=== PATIENT | male | born 1980 | race Caucasian/White ===

== ENCOUNTER 2019-01-16 22:49 | Inpatient (IN) | payer OTHER ==
[2019-01-16] MEDS ORDERED: ONDANSETRON 4 MG/2 ML VIAL IVPUSH ONE (23:01)
--- NOTE | 2019-01-16 23:14 | PDOC ---
History of Present Illness - History of Present Illness Initial Comments: 01/16/19 23:04 CHIEF COMPLAINT: abdominal pain HISTORY OF PRESENT ILLNESS: 38 yo M with no significant PMH presents to ED with LLQ pain since 5 pm. Patient reports vomiting 4-5 times and a little nausea now. Reports eating tacos yesterday and pork this morning . Similar episode about 20 days ago with diarrhea. Patient denies fever but reports chills. Last BM was today and was normal. No recent travel or sick contacts. PAST MEDICAL HISTORY: Denies past medical history FAMILY HISTORY: "my family has a problem with cancer." SOCIAL HISTORY:Denies tobacco, alcohol, illicit drug use. SURGICAL HISTORY: Denies ALLERGIES: No known drug allergies REVIEW OF SYSTEMS General/Constitutional: Denies fever or chills. Denies weakness, weight change. HEENT: Denies change in vision. Denies ear pain or discharge. Denies sore throat. Cardiovascular: Denies chest pain or shortness of breath. Respiratory: Denies cough, wheezing, or hemoptysis. Gastrointestinal: RLQ abdominal pain since 5 pm with 4-5 episodes vomiting. Denies rectal bleeding. Genitourinary: Denies dysuria, frequency, or change in urination. Musculoskeletal: Denies joint or muscle swelling or pain. Denies neck or back pain. Skin and breasts: Denies rash or easy bruising. Neurologic: Denies headache, vertigo, loss of consciousness, or loss of sensation. Psychiatric: Denies depression or anxiety. PHYSICAL EXAM General Appearance: Well-appearing, appropriately dressed. No apparent distress , no intoxication. HEENT: EOMI, PERRLA, normal ENT inspection, normal voice, TMs normal, pharynx normal. No conjunctival pallor. No photophobia, scleral icterus. Neck: Supple. Trachea midline. No tenderness, rigidity, carotid bruit, stridor , lymphadenopathy, or thyromegaly. Respiratory/Chest: Lungs CTAB. No shortness of breath, chest tenderness, respiratory distress, accessory muscle use. No crackles, rales, rhonchi, stridor , wheezing, dullness Cardiovascular: RRR. S1, S2. No JVD, murmur, bradycardia, tachycardia. Vascular Pulses: Dorsalis-Pedis (R): 2+, Dorsalis-Pedis (L): 2+ Gastrointestinal/Abdominal: RLQ tenderness. No organomegaly, pulsatile mass, guarding, hernia, hepatomegaly, splenomegaly. Musculoskeletal/Extremities: Normal inspection. FROM of all extremities, normal capillary refill. Pelvis Stable. No CVA tenderness. No tenderness to extremities, pedal edema, swelling, erythema or deformity. Integumentary: Appropriate color, dry, warm. No cyanosis, erythema, jaundice or rash Neurologic: fiber machine tender II-XII intact. Fully oriented, alert. Appropriate mood/affect. Motor strength 5/5. No appreciable EOM palsy, facial droop or sensory deficit. 01/17/19 00:32 <Diana Chapman - Last Filed: 01/17/19 01:36> <Sanjuanita Banegas - Last Filed: 01/17/19 03:52> - General Chief Complaint: Pain Stated Complaint: ABDOMINAL PAIN Time Seen by Provider: 01/16/19 23:00 Past History - Suicide/Smoking/Psychosocial Hx Smoking History: Never smoked Information on smoking cessation initiated: No Hx Alcohol Use: No Drug/Substance Use Hx: No <Diana Chapman - Last Filed: 01/17/19 01:36> <Sanjuanita Banegas - Last Filed: 01/17/19 03:52> - Past Medical History Allergies/Adverse Reactions: Allergies Allergy/AdvReac Type Severity Reaction Status Date / Time No Known Allergies Allergy Verified 01/16/19 22:50 Home Medications: Ambulatory Orders NK [No Known Home Medication] 01/17/19 *Physical Exam - Vital Signs Last Vital Signs Temp Pulse Resp BP Pulse Ox 98.3 F 65 18 136/78 99 01/16/19 22:50 01/16/19 22:50 01/16/19 22:50 01/16/19 22:50 01/16/19 22:50 <Diana Chapman - Last Filed: 01/17/19 01:36> - Vital Signs Last Vital Signs Temp Pulse Resp BP Pulse Ox 98.3 F 65 18 136/78 99 01/16/19 22:50 01/16/19 22:50 01/16/19 22:50 01/16/19 22:50 01/16/19 22:50 <Sanjuanita Banegas - Last Filed: 01/17/19 03:52> ED Treatment Course - LABORATORY CBC & Chemistry Diagram: 01/16/19 23:35 01/16/19 23:35 <AdelaDiana - Last Filed: 01/17/19 01:36> - LABORATORY CBC & Chemistry Diagram: 01/16/19 23:35 01/16/19 23:35 - ADDITIONAL ORDERS Additional order review: Laboratory Results 01/16/19 01/16/19 23:35 23:35 Sodium 140 Potassium 4.0 Chloride 104 Carbon Dioxide 30 Anion Gap 7 L BUN 17.6 Creatinine 1.0 Est GFR (CKD-EPI)AfAm 109.40 Est GFR (CKD-EPI)NonAf 94.39 Random Glucose 136 H Calcium 9.2 Total Bilirubin 0.5 AST 31 ALT 123 H Alkaline Phosphatase 81 Total Protein 7.7 Albumin 4.2 Lipase 172 01/16/19 23:35 RBC 5.30 MCV 88.9 MCHC 33.8 RDW 12.8 MPV 8.2 Neutrophils % 89.4 H Lymphocytes % 7.1 L Monocytes % 3.0 L Eosinophils % 0.1 Basophils % 0.4 - Medications Given in the ED: ED Medications Discontinued Medications Generic Name Dose Route Start Last Admin Trade Name Alan PRN Reason Stop Dose Admin Ondansetron HCl 4 mg 01/16/19 23:01 01/16/19 23:40 Zofran Injection IVPUSH 01/16/19 23:02 4 mg ONCE ONE Administration <Sanjuanita Banegas - Last Filed: 01/17/19 03:52> Medical Decision Making - Medical Decision Making 01/16/19 23:14 38 yo M with no significant PMH presents to ED with LLQ pain since 5 pm. -labs -zofran -CT 01/17/19 01:07 Patient reassessed, states he is feeling much better. Awaiting CT results. 01/17/19 01:37 CT indicates possible ambar. Given equivocal lab results and patient's improvement of pain. will confirm with US. Case discussed in detail with attending MD Banegas including history, physical exam and ancillary studies. In brief, this patient is being seen in the ED for a chief complaint of: RLQ pain since this evening I have completed the initial assessment interview note and have ordered the following labs: cbc, cmp, lipase, CT I have reviewed the following results: labs, CT, US Pending results: US Plan for disposition as follows: pending MD Banegas has assumed care for the patient and will complete the evaluation and treatment. <Diana Chapman - Last Filed: 01/17/19 01:36> - Medical Decision Making 01/17/19 02:46 Patient Name: MOIRA AGUILAR THIS IS A PRELIMINARY REPORT FROM [facility] DATE OF SERVICE: 2019-01-17 01:29:50 IMAGES: 44 EXAM: ABDOMEN US -LIMITED , right upper quadrant and limited abdominal duplex HISTORY: Right upper quadrant pain COMPARISON: None. FINDINGS: Right upper quadrant ultrasound:The liver is normal, without mass or biliary duct dilation. The gallbladder is distended and contains a 2.8 cm nonmobile stone in the neck, possibly impacted as well as gallbladder sludge. Positive sonographic Castro sign is noted. No wall thickening. There may be trace pericholecystic edema. Findings are highly suspicious for cholecystitis. The CBD is not dilated and measures2 millimeters in diameter. Right kidney measures 9.2centimeters in length and is unremarkable. The visualized aorta and IVC are normal. Pancreas is partially obscured, but appears normal. Abdominal duplex: There is normal hepatopedial flow in the main portal vein. IMPRESSION: Suspected cholecystitis without biliary duct dilation, secondary to a 2.8 cm stone in the gallbladder neck <Sanjuanita Banegas - Last Filed: 01/17/19 03:52> *DC/Admit/Observation/Transfer <Diana Chapman - Last Filed: 01/17/19 01:36> - Discharge Dispostion Decision to Admit order: Yes <Sanjuanita Banegas - Last Filed: 01/17/19 03:52> Diagnosis at time of Disposition: Cholecystitis - Discharge Dispostion Condition at time of disposition: Guarded - Patient Instructions Printed Discharge Instructions: DI for Cholecystitis
[2019-01-16] MEDS ORDERED: ONDANSETRON 4 MG/2 ML VIAL ONE (23:27)
[2019-01-16 23:45] LABS: BASO % 0.4 % (0-2.0); EOS % 0.1 % (0-4.5); HEMATOCRIT 47.1 % (35.4-49); HEMOGLOBIN 15.9 GM/dL (11.7-16.9); LYMPH % 7.1 % (8-40); MCH 30.1 pg (25.7-33.7); MCHC 33.8 g/dl (32.0-35.9); MEAN CELL VOLUME 88.9 fl (80-96); MEAN PLT VOLUME 8.2 fl (7.5-11.1); NEUT % 89.4 % (42.8-82.8); PLATELET COUNT 282 K/MM3 (134-434); RDW 12.8 % (11.9-15.9); WHITE BLOOD COUNT 12.2 K/mm3 (4.0-10.0)
[2019-01-17] LABS: ALBUMIN 4.2 g/dl (3.4-5.0); BILIRUBIN,TOTAL 0.5 mg/dL (0.2-1); BLOOD UREA NITROGEN 17.6 mg/dL (7-18); CALCIUM 9.2 mg/dL (8.5-10.1); TOT PROT 7.7 g/dl (6.4-8.2)
[2019-01-17] MEDS ORDERED: ONDANSETRON 4 MG/2 ML VIAL IVPUSH PRN (04:08)
[2019-01-17] MEDS ORDERED: SODIUM CHLORIDE 1,000 ML IV SCH ×2 (04:15→04:26)
[2019-01-17] MEDS ORDERED: ACETAMINOPHEN INJECTION 100 ML IVPB ONE (04:22)
--- NOTE | 2019-01-17 04:25 | HP ---
CHIEF COMPLAINT: RLQ pain PCP:unknown HISTORY OF PRESENT ILLNESS: 38 y/o male with no significant PMH presents to the ED with complaints of RLQ pain- patient states that he was eating steak for dinner and about an hour after dinner he started to have this sharp RLQ pain associated with 3-4 episodes of vomiting no diarrhea. he states that this is the third episode like this in the past; the last one being around 3 weeks ago; he states that he also felt warm and that he was having radha associated dizziness- he denies any CP/SOB? ER course was notable for: (1)vitals wnl (2)wbc 12.2, ALT 123 AST 33 t zeb 0.5 (3)US: distended GB with 2.8cm nonmobile stone in GB neck; normal CBD CT: distended and mildly edematous GB with isodense gallstone- no biliary tract dilation Recent Travel: denies PAST MEDICAL HISTORY: none PAST SURGICAL HISTORY: noen Social History: Smoking:denies Alcohol:social alcohol use Drugs: denies Allergies No Known Allergies Allergy (Verified 01/16/19 22:50) HOME MEDICATIONS: Home Medications Medication Instructions Recorded NK [No Known Home Medication] 01/17/19 REVIEW OF SYSTEMS CONSTITUTIONAL: Absent: fever, chills, diaphoresis, generalized weakness, malaise, loss of appetite, weight change HEENT: Absent: rhinorrhea, nasal congestion, throat pain, throat swelling, difficulty swallowing, mouth swelling, ear pain, eye pain, visual changes CARDIOVASCULAR: Absent: chest pain, syncope, palpitations, irregular heart rate, lightheadedness , peripheral edema RESPIRATORY: Absent: cough, shortness of breath, dyspnea with exertion, orthopnea, wheezing, stridor, hemoptysis GASTROINTESTINAL: Present: abdominal pain, nausea, vomiting Absent:, abdominal distension, , diarrhea, constipation, melena, hematochezia GENITOURINARY: Absent: dysuria, frequency, urgency, hesitancy, hematuria, flank pain, genital pain MUSCULOSKELETAL: Absent: myalgia, arthralgia, joint swelling, back pain, neck pain SKIN: Absent: rash, itching, pallor HEMATOLOGIC/IMMUNOLOGIC: Absent: easy bleeding, easy bruising, lymphadenopathy, frequent infections ENDOCRINE: Absent: unexplained weight gain, unexplained weight loss, heat intolerance, cold intolerance NEUROLOGIC: Present: dizziness Absent: headache, focal weakness or paresthesias, unsteady gait, seizure, mental status changes, bladder or bowel incontinence PSYCHIATRIC: Absent: anxiety, depression, suicidal or homicidal ideation, hallucinations. PHYSICAL EXAMINATION Vital Signs - 24 hr 01/16/19 01/16/19 22:50 23:20 Temperature 98.3 F Pulse Rate 65 Respiratory 18 Rate Blood Pressure 136/78 O2 Sat by Pulse 99 99 Oximetry (%) GENERAL: Awake, alert, and fully oriented, in no acute distress. EYES: PEERLA: EOMI; no scleral icterus NECK: no JVD; no lymphadenopathy. LUNGS: CTA B/L; no rales, rhonchi or wheezing HEART: Regular rate and rhythm, normal S1 and S2 without murmur, rub or gallop. ABDOMEN: Soft, +RUQ and RLQ tenderness; +murphys signsl + BS in all 4 quadrants MUSCULOSKELETAL: Normal range of motion at all joints. No bony deformities or tenderness. No CVA tenderness. EXTREMITIES: warm; well-perfused no clubbing/cyanosis or edema. PSYCHIATRIC: Cooperative. Good eye contact. Appropriate mood and affect. SKIN: Warm, dry, normal turgor, no rashes or lesions noted, normal capillary refill. Laboratory Results - last 24 hr 01/16/19 01/16/19 01/16/19 23:35 23:35 23:35 WBC 12.2 H RBC 5.30 Hgb 15.9 Hct 47.1 MCV 88.9 MCH 30.1 MCHC 33.8 RDW 12.8 Plt Count 282 MPV 8.2 Absolute Neuts (auto) 10.9 H Neutrophils % 89.4 H Lymphocytes % 7.1 L Monocytes % 3.0 L Eosinophils % 0.1 Basophils % 0.4 Nucleated RBC % 0 Sodium 140 Potassium 4.0 Chloride 104 Carbon Dioxide 30 Anion Gap 7 L BUN 17.6 Creatinine 1.0 Est GFR (CKD-EPI)AfAm 109.40 Est GFR (CKD-EPI)NonAf 94.39 Random Glucose 136 H Calcium 9.2 Total Bilirubin 0.5 AST 31 ALT 123 H Alkaline Phosphatase 81 Total Protein 7.7 Albumin 4.2 Lipase 172 ASSESSMENT/PLAN: 38 y/o male with no significant PMH presents to the ED with complaints of RLQ pain found to have acute choleycystitis confirmed on CT scan and ultrasound #Acute Choleycystitis both CT scan and ultrasound confirmed acute choelycystitis -NPO -NS@100mls/hr -surgery consulted -will give dose of levaquin/flagyl given leukocytosis -PT/PTT INR -type and screen -zofran 4q6H --pain control -scds for dvt ppx F/E/N ns@100mls/hr monitor electrolytes NPO dvt ppx: scds dispo: med surg Family Medical History Family Hx Gastrointestinal Disorder: Father (liver ca) Problem List - Problem (1) Cholecystitis Code(s): K81.9 - CHOLECYSTITIS, UNSPECIFIED Visit type - Emergency Visit Emergency Visit: Yes ED Registration Date: 01/17/19 Care time: The patient presented to the Emergency Department on the above date and was hospitalized for further evaluation of their emergent condition. - New Patient This patient is new to me today: Yes Date on this admission: 01/17/19 - Critical Care Critical Care patient: No ATTENDING PHYSICIAN STATEMENT I saw and evaluated the patient. I reviewed the resident's note and discussed the case with the resident. I agree with the resident's findings and plan as documented. SUBJECTIVE: OBJECTIVE: ASSESSMENT AND PLAN:
--- NOTE | 2019-01-17 04:31 | PN ---
Teaching Attending Note Name of Resident: Camille Arrieta ATTENDING PHYSICIAN STATEMENT I saw and evaluated the patient. I reviewed the resident's note and discussed the case with the resident. I agree with the resident's findings and plan as documented. SUBJECTIVE: 38yo man from [place] with no medical Hx c/o sharp, localized pain in RLQ , 3 episodes of nonbloody vomiting which started yesterday afternoon . Worse pain after drinking soft drink. Reported some fevers and chills. No diarrhea. OBJECTIVE: Last Vital Signs Temp Pulse Resp BP Pulse Ox 98.3 F 65 18 136/78 99 01/16/19 22:50 01/16/19 22:50 01/16/19 22:50 01/16/19 22:50 01/16/19 23:20 gen - nad,[id number] abdomen - soft ruq tenderness, +kern sign Abnormal Lab Results 01/16/19 01/16/19 23:35 23:35 WBC 12.2 H Absolute Neuts (auto) 10.9 H Neutrophils % 89.4 H Lymphocytes % 7.1 L Monocytes % 3.0 L Anion Gap 7 L Random Glucose 136 H ALT 123 H imaging reviewed ASSESSMENT AND PLAN: #Acute cholecystitis- might be early infection given leukocytosis and neutrophil predominance. Slightly elevated alk phos likely from cholestasis. -med/surg -npo -zofran iv for nausea/vomiting -morphine IV for pain control -iv fluid hydration -surgery consult -flagyl -levaquin -ekg -pt/ptt -type and cross -scds for dvt ppx
[2019-01-17] MEDS: ACETAMINOPHEN 1000 MG/100 ML VIAL (NON FORMULARY) IVPB PRN ×2 (04:33→12:04)
[2019-01-17 05:37] VITALS: BMI 25.8
[2019-01-17 07:35] LABS: BASO % 0.3 % (0-2.0); EOS % 0.6 % (0-4.5); HEMATOCRIT 43.5 % (35.4-49); LYMPH % 16.2 % (8-40); MCH 30.6 pg (25.7-33.7); MCHC 34.5 g/dl (32.0-35.9); MEAN CELL VOLUME 88.6 fl (80-96); MEAN PLT VOLUME 8.4 fl (7.5-11.1); MONO % 8.6 % (3.8-10.2); NEUT % 74.3 % (42.8-82.8); PLATELET COUNT 267 K/MM3 (134-434); RBC 4.91 M/mm3 (4.00-5.60); RDW 12.8 % (11.9-15.9); WHITE BLOOD COUNT 10.9 K/mm3 (4.0-10.0)
[2019-01-17 07:47] LABS: INR 1.09 (0.83-1.09); PROTHROMBIN TIME (PATIENT) 12.9 SEC (9.7-13.0)
[2019-01-17 07:50] LABS: ACTIVATED PTT 29.4 SECONDS (25.2-36.5)
[2019-01-17 08:08] LABS: ALBUMIN 3.6 g/dl (3.4-5.0); BILIRUBIN,TOTAL 0.5 mg/dL (0.2-1); BLOOD UREA NITROGEN 14.7 mg/dL (7-18); CALCIUM 8.6 mg/dL (8.5-10.1); CREATININE 0.7 mg/dL (0.55-1.3); MAGNESIUM 2.6 mg/dL (1.8-2.4); PHOSPHOROUS 3.4 mg/dL (2.5-4.9); POTASSIUM 3.5 mmol/L (3.5-5.1); TOT PROT 6.7 g/dl (6.4-8.2)
--- NOTE | 2019-01-17 10:58 | CON.ID ---
Consult Consult Specialty:: infectious diseases Referred by:: Erica Reason for Consultation:: masha bowman - History of Present Illness Chief Complaint: pain rt upper quadrant History of Present Illness: 38 y/o male with no significant PMH admitted with complaints of RLQ pain- patient states that he was eating steak for dinner and about an hour after dinner he started to have this sharp RLQ pain associated with 3-4 episodes of vomiting no diarrhea. he states that this is the third episode like this in the past; the last one being around 3 weeks ago according to the patient this is his 3rd attack still continues to have abd pain - History Source History Provided By: Patient, Caregiver Limitations to Obtaining History: Language Barrier - Alcohol/Substance Use Hx Alcohol Use: No - Smoking History Smoking history: Never smoked Home Medications - Allergies Allergies/Adverse Reactions: Allergies Allergy/AdvReac Type Severity Reaction Status Date / Time No Known Allergies Allergy Verified 01/16/19 22:50 - Home Medications Home Medications: Ambulatory Orders NK [No Known Home Medication] 01/17/19 Review of Systems - Review of Systems Constitutional: reports: No Symptoms Eyes: reports: No Symptoms HENT: reports: No Symptoms Neck: reports: No Symptoms Cardiovascular: reports: No Symptoms Respiratory: reports: No Symptoms Gastrointestinal: reports: Abdominal Pain, Nausea Genitourinary: reports: No Symptoms Musculoskeletal: reports: No Symptoms Integumentary: reports: No Symptoms Neurological: reports: No Symptoms Endocrine: reports: No Symptoms Hematology/Lymphatic: reports: No Symptoms Psychiatric: reports: No Symptoms Physical Exam Vital Signs: Vital Signs Temperature 97.9 F 01/17/19 10:49 Pulse Rate 65 01/17/19 10:49 Respiratory Rate 18 01/17/19 10:49 Blood Pressure 111/68 01/17/19 10:49 O2 Sat by Pulse Oximetry (%) 99 01/17/19 04:30 Constitutional: Yes: Well Nourished, Calm, Mild Distress Eyes: Yes: Conjunctiva Clear Neck: Yes: Supple, Trachea Midline Cardiovascular: Yes: Regular Rate and Rhythm Respiratory: Yes: Regular, CTA Bilaterally Gastrointestinal: Yes: Soft, Tenderness (ruq), Vomiting Musculoskeletal: Yes: WNL Extremities: Yes: WNL Neurological: Yes: Alert, Oriented Psychiatric: Yes: Alert, Oriented Labs: CBC, BMP 01/17/19 06:25 01/17/19 06:25 Imaging - Results Cat Scan: Report Reviewed, Image Reviewed Ultrasound: Report Reviewed, Image Reviewed Assessment/Plan 38 y/o male with no significant PMH presents to the ED with complaints of RLQ pain found to have acute choleycystitis confirmed on CT scan and ultrasound abd pain ac choley plan will change abx to zosyn iv fluids surgery to see the patient rest as per the team
--- NOTE | 2019-01-17 11:28 | PN ---
Physical Exam: SUBJECTIVE: Patient seen and examined at the bedside. having abdominal pain and now a headache. assured him that we will be managing his pain and will give him a dose of IV tylenol. OBJECTIVE: ekg nsr, qtc 408 given levaquin this a.m. started on zosyn per ID. for surgical eval today ---- Patient is a 38 year old male with no significant past medical history or medications. Presents to the [facility] ED on 01/17/19 with complaints of RLQ pain found to have acute choleycystitis per CT scan and ultrasound. He is being admitted for pain management, antibiotics and surgical evaluation. imaging: - CTAP 01/16/19: thickening edematous gallbladder with a questionable intraluminal faintly visualized stone. no CT evidence of an acute process is identified. - abdomen us 01/17/19: internal debris and suggestion of small sludge in the gallbladder. non mobile gallstone measuring 2.7cm in the gallbladder neck region w/o wall thickening and with a questionable trace of pericholecystic free fluid. Vital Signs Period Temp Pulse Resp BP Sys/Nielson Pulse Ox Last 24 Hr 97.9 F-98.5 F 63-65 18-20 111-136/68-78 99-99 GENERAL: The patient is awake, alert, and fully oriented, in no acute distress. HEAD: Normal with no signs of trauma. EYES: PERRL, extraocular movements intact, sclera anicteric, conjunctiva clear. No ptosis. ENT: Ears normal, nares patent, oropharynx clear without exudates, moist mucous membranes. NECK: Trachea midline, full range of motion, supple. ABDOMEN: Soft, nondistended, normoactive bowel sounds, had bm yesterday EXTREMITIES: no edema. NEUROLOGICAL: Normal speech, gait not observed. PSYCH: Normal mood, normal affect. SKIN: Warm, dry, normal turgor, no rashes or lesions noted Laboratory Results - last 24 hr 01/16/19 01/16/19 01/16/19 23:35 23:35 23:35 WBC 12.2 H RBC 5.30 Hgb 15.9 Hct 47.1 MCV 88.9 MCH 30.1 MCHC 33.8 RDW 12.8 Plt Count 282 MPV 8.2 Absolute Neuts (auto) 10.9 H Neutrophils % 89.4 H Lymphocytes % 7.1 L Monocytes % 3.0 L Eosinophils % 0.1 Basophils % 0.4 Nucleated RBC % 0 PT with INR INR PTT (Actin FS) Sodium 140 Potassium 4.0 Chloride 104 Carbon Dioxide 30 Anion Gap 7 L BUN 17.6 Creatinine 1.0 Est GFR (CKD-EPI)AfAm 109.40 Est GFR (CKD-EPI)NonAf 94.39 Random Glucose 136 H Calcium 9.2 Phosphorus Magnesium Total Bilirubin 0.5 AST 31 ALT 123 H Alkaline Phosphatase 81 Total Protein 7.7 Albumin 4.2 Lipase 172 Blood Type Antibody Screen 01/17/19 01/17/19 01/17/19 04:25 06:25 06:25 WBC 10.9 H RBC 4.91 Hgb 15.0 Hct 43.5 MCV 88.6 MCH 30.6 MCHC 34.5 RDW 12.8 Plt Count 267 MPV 8.4 Absolute Neuts (auto) 8.1 H Neutrophils % 74.3 Lymphocytes % 16.2 D Monocytes % 8.6 D Eosinophils % 0.6 D Basophils % 0.3 Nucleated RBC % 0 PT with INR 12.90 INR 1.09 PTT (Actin FS) 29.4 Sodium Potassium Chloride Carbon Dioxide Anion Gap BUN Creatinine Est GFR (CKD-EPI)AfAm Est GFR (CKD-EPI)NonAf Random Glucose Calcium Phosphorus Magnesium Total Bilirubin AST ALT Alkaline Phosphatase Total Protein Albumin Lipase Blood Type B POSITIVE Antibody Screen Negative 01/17/19 01/17/19 06:25 07:00 WBC RBC Hgb Hct MCV MCH MCHC RDW Plt Count MPV Absolute Neuts (auto) Neutrophils % Lymphocytes % Monocytes % Eosinophils % Basophils % Nucleated RBC % PT with INR INR PTT (Actin FS) Sodium 138 Potassium 3.5 Chloride 103 Carbon Dioxide 29 Anion Gap 7 L BUN 14.7 Creatinine 0.7 Est GFR (CKD-EPI)AfAm 137.78 Est GFR (CKD-EPI)NonAf 118.88 Random Glucose 91 Calcium 8.6 Phosphorus 3.4 Magnesium 2.6 H Total Bilirubin 0.5 AST 24 ALT 103 H Alkaline Phosphatase 73 Total Protein 6.7 Albumin 3.6 Lipase Blood Type B POSITIVE Antibody Screen Active Medications Generic Name Dose Route Start Last Admin Trade Name Freq PRN Reason Stop Dose Admin Acetaminophen 1,000 mg 01/17/19 04:10 01/17/19 04:33 Ofirmev Injection - IVPB 1,000 mg Q6H PRN Administration PAIN LEVEL 4 - 6 Sodium Chloride 1,000 mls @ 100 mls/hr 01/17/19 04:26 01/17/19 04:34 Normal Saline - IV 100 mls/hr ASDIR JOHANA Administration Piperacillin Sod/Tazobactam 50 mls @ 100 mls/hr 01/17/19 11:15 Sod 3.375 gm/ Dextrose IVPB Q8H-IV JOHANA Protocol Ondansetron HCl 4 mg 01/17/19 04:08 Zofran Injection IVPUSH Q6H PRN NAUSEA ASSESSMENT/PLAN: Patient is a 38 year old male with no significant past medical history or medications. Presents to the [facility] ED on 01/17/19 with complaints of RLQ pain found to have acute choleycystitis per CT scan and ultrasound. He is being admitted for pain management, antibiotics and surgical evaluation. Problem List - Problems (1) Cholecystitis Assessment/Plan: patient presents to the [facility] ED on 01/17/19 with complaints of RLQ pain found to have acute choleycystitis per CT scan and ultrasound. He is being admitted for pain management, antibiotics and surgical evaluation. Seen by ID and started on zosyn on zofran prn ekg without qtc prolongation monitor pain, tylenol for now, if worse may need stronger pain control surgery to evaluate for further recommendations. Code(s): K81.9 - CHOLECYSTITIS, UNSPECIFIED (2) Prophylactic measure Assessment/Plan: fen NS @ 100 monitor bgms q 4 while npo monitor electrolytes advance diet per surgery lipid panel and a1c in a.m. incentive spirometer full code Code(s): Z29.9 - ENCOUNTER FOR PROPHYLACTIC MEASURES, UNSPECIFIED Visit type - Emergency Visit Emergency Visit: Yes ED Registration Date: 01/17/19 Care time: The patient presented to the Emergency Department on the above date and was hospitalized for further evaluation of their emergent condition. - New Patient This patient is new to me today: Yes Date on this admission: 01/17/19 - Critical Care Critical Care patient: No - Discharge Referral Referred to [facility] Med P.C.: No
[2019-01-17] MEDS ORDERED: DEXTROSE 5%-WATER - 50 ML IVPB ONE ×2 (11:59→17:51)
[2019-01-17] MEDS ORDERED: PIPERACILLIN/TAZOBACTAM 3.375 GM VIAL IVPB ONE ×2 (11:59→17:51)
[2019-01-17] MEDS: PIPERACILLIN/TAZOB 3.375 GM 3.375 GM in DEXTROSE 5%-WATER - 50 ML IVPB SCH ×2 (12:04→17:54)
[2019-01-17] MEDS ORDERED: D5-1/2NS+20 MEQ KCL - 20 MEQ/1,000 ML INFUS.BAG IV SCH (18:00)
--- NOTE | 2019-01-17 18:00 | CONSULT ---
Consult Consult Specialty:: General Surgery Referred by:: Blessing Banegas Reason for Consultation:: cholecystitis - History of Present Illness Chief Complaint: RUQ pain History of Present Illness: 38yo Shantell Martinez, generally healthy, presented with third episode of RUQ pain occurring a while after a meal yesterday (tacos), associated with n/v. It had happened in early December after eggs and rice, and once about a year and a half ago - he did not previously seek medical attention. He also had some dizziness when the pain came, and chills but no fever. No urinary or bowel changes. In ER, he was afebrile with mildly elevated wbc. LFTs mildly up, bili normal, lipase normal. He was also dehydrated. US and CT showed a large gallstone in neck of gallbladder, with possible trace pericholecystic fluid, and no ductal dilation or wall thickening. He was started on fluids and antibiotics and admitted to medicine. Surgery was asked to assess. He is seen and examined in bed, with family present. He is feeling much better, with some pain still in RUQ, radiating laterally. No further n/v, also with headache, which he thinks might be from lack of coffee. Last BM was normal, soft , last night. Last po was some gregor ashley around midnight last night. He does not have a regular doctor. 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 - Alcohol/Substance Use Hx Alcohol Use: Yes (rarely, 2-3x/year) History of Substance Use: reports: None - Smoking History Smoking history: Never smoked Have you smoked in the past 12 months: No - Social History ADL: Independent Occupation: sports management intern, [employer] Place of : Other ([place]) Home Medications - Allergies Allergies/Adverse Reactions: Allergies Allergy/AdvReac Type Severity Reaction Status Date / Time No Known Allergies Allergy Verified 01/16/19 22:50 - Home Medications Home Medications: Ambulatory Orders NK [No Known Home Medication] 01/17/19 Home Medications (free text): tylenol/ibuprofen prn Family Medical History Family Hx Cancer: Mother (liver), Brother (liver, at 47 (had Hep B)) Other Family History: uncle also with liver CA; sister with lupus Review of Systems - Review of Systems Constitutional: reports: Chills. denies: Fever Eyes: reports: Blurred Vision (decreased on right side for years). denies: Recent Change in Vision HENT: reports: Throat Pain (2 wks ago - hoarse - better now). denies: Difficult Swallowing Neck: denies: Swollen Glands, Tenderness Cardiovascular: denies: Chest Pain, Palpitations Respiratory: denies: Cough, SOB Gastrointestinal: reports: Abdominal Pain (with hpi). denies: Constipation, Diarrhea, Nausea, Vomiting Genitourinary: denies: Burning, Dysuria Musculoskeletal: denies: Back Pain, Joint Pain, Muscle Pain Integumentary: denies: Change in Color, Rash Neurological: reports: Dizziness (with pain/hpi), Headache Physical Exam Vital Signs: Vital Signs Temperature 98.9 F 01/17/19 17:42 Pulse Rate 67 01/17/19 17:42 Respiratory Rate 20 01/17/19 17:42 Blood Pressure 122/62 01/17/19 17:42 O2 Sat by Pulse Oximetry (%) 99 01/17/19 04:30 Constitutional: Yes: Well Nourished, No Distress, Calm Eyes: Yes: Conjunctiva Clear, EOM Intact. No: Sclera Icterus HENT: Yes: Atraumatic, Normocephalic Neck: Yes: Supple, Trachea Midline Cardiovascular: Yes: Regular Rate and Rhythm Respiratory: Yes: Regular, CTA Bilaterally Gastrointestinal: Yes: Normal Bowel Sounds, Soft, Tenderness (RUQ mostly, also epigastric, and referred from other quadrants of abdomen, no rebound or guarding ). No: Distention ...Rectal Exam: Yes: Deferred Renal/: No: CVA Tenderness - Left, CVA Tenderness - Right Musculoskeletal: No: Joint Stiffness, Joint Swelling Extremities: No: Cool, Cyanosis Edema: No Peripheral Pulses WNL: Yes Integumentary: No: Jaundice, Rash Neurological: Yes: Alert, Oriented Psychiatric: Yes: Alert, Oriented Labs: CBC, BMP 01/17/19 06:25 01/17/19 06:25 CMP Sodium 138 mmol/L (136-145) 01/17/19 06:25 Potassium 3.5 mmol/L (3.5-5.1) 01/17/19 06:25 Chloride 103 mmol/L (98-107) 01/17/19 06:25 Carbon Dioxide 29 mmol/L (21-32) 01/17/19 06:25 Anion Gap 7 MMOL/L (8-16) L 01/17/19 06:25 BUN 14.7 mg/dL (7-18) 01/17/19 06:25 Creatinine 0.7 mg/dL (0.55-1.3) 01/17/19 06:25 Est GFR (CKD-EPI)AfAm 137.78 01/17/19 06:25 Est GFR (CKD-EPI)NonAf 118.88 01/17/19 06:25 POC Glucometer 86 UNITS (80-120) 01/17/19 15:23 Random Glucose 91 mg/dL (74-106) 01/17/19 06:25 Calcium 8.6 mg/dL (8.5-10.1) 01/17/19 06:25 Phosphorus 3.4 mg/dL (2.5-4.9) 01/17/19 06:25 Magnesium 2.6 mg/dL (1.8-2.4) H 01/17/19 06:25 Total Bilirubin 0.5 mg/dL (0.2-1) 01/17/19 06:25 AST 24 U/L (15-37) 01/17/19 06:25 ALT 103 U/L (13-61) H 01/17/19 06:25 Alkaline Phosphatase 73 U/L (45-117) 01/17/19 06:25 Total Protein 6.7 g/dl (6.4-8.2) 01/17/19 06:25 Albumin 3.6 g/dl (3.4-5.0) 01/17/19 06:25 Lipase 172 U/L (73-393) 01/16/19 23:35 INR, PTT INR 1.09 (0.83-1.09) 01/17/19 06:25 Imaging - Results Cat Scan: Report Reviewed, Image Reviewed (gallbladder with faintly seen large stone, no ductal dilation) Ultrasound: Report Reviewed (gb with 2.7cm nonmobile stone in neck, ?trace pericholecystic fluid, no wall thickening, no ductal dilation) Problem List - Problems (1) Calculus of gallbladder with acute cholecystitis without obstruction Assessment/Plan: large stone in neck of gallbladder with leukocytosis antibiotics per ID NPO until after ambar pain meds prn, nonnarcotics first line DVT prophylaxis no s/s of cbd obstruction or pancreatitis trend labs replete lytes prn IV fluid changed to maintenance - pt was dehydrated, ordered at 125ml/hr Discussed with patient risks, benefits and alternatives of laparoscopic possible open cholecystectomy, including but not limited to bleeding, infection , injury to adjacent structures, bile leak or ductal injury, intraabdominal abscess, incisional hernia, bowel obstruction in future, need for further procedures; alternatives include antibiotics, delayed or no surgery - risks of this include recurrence of cholecystitis, cholangitis, sepsis, pancreatitis and sequelae. Patient desires to proceed with operation - will take to OR for above tomorrow, presuming am labs ok. Informed consent signed for same. Jeff Hdz assisted with Honduran interpretation at bedside. Code(s): K80.00 - CALCULUS OF GALLBLADDER W ACUTE CHOLECYST W/O OBSTRUCTION (2) RUQ pain Assessment/Plan: improved Code(s): R10.11 - RIGHT UPPER QUADRANT PAIN (3) Nausea and vomiting Assessment/Plan: resolved Code(s): R11.2 - NAUSEA WITH VOMITING, UNSPECIFIED Qualifiers: Vomiting type: unspecified Vomiting Intractability: non-intractable Qualified Code(s): R11.2 - Nausea with vomiting, unspecified (4) Chills Assessment/Plan: resolved Code(s): R68.83 - CHILLS (WITHOUT FEVER)
[2019-01-18] MEDS ORDERED: DEXTROSE 5%-WATER - 50 ML IVPB ONE ×3 (01:49→17:57)
[2019-01-18] MEDS ORDERED: PIPERACILLIN/TAZOBACTAM 3.375 GM VIAL IVPB ONE ×3 (01:49→17:56)
[2019-01-18] MEDS: PIPERACILLIN/TAZOB 3.375 GM 3.375 GM in DEXTROSE 5%-WATER - 50 ML IVPB SCH ×3 (02:07→18:05)
--- NOTE | 2019-01-18 07:08 | EKG ---
Test Reason : Blood Pressure : / mmHG Vent. Rate : 066 BPM Atrial Rate : 066 BPM P-R Int : 156 ms QRS Dur : 084 ms QT Int : 390 ms P-R-T Axes : 063 020 013 degrees QTc Int : 408 ms NORMAL SINUS RHYTHM NORMAL ECG NO PREVIOUS ECGS AVAILABLE Confirmed by ABHILASH CARSON MD ([id number]) on 01/18/2019 7:08:12 AM Referred By: Confirmed By:ABHILASH CARSON MD
--- NOTE | 2019-01-18 07:51 | PN ---
Progress Note, Physician History of Present Illness: stable feels better - Current Medication List Current Medications: Active Medications Acetaminophen (Ofirmev Injection -) 1,000 mg IVPB Q6H PRN PRN Reason: PAIN LEVEL 4 - 6 Last Admin: 01/17/19 12:04 Dose: 1,000 mg Piperacillin Sod/Tazobactam (Sod 3.375 gm/ Dextrose) 50 mls @ 100 mls/hr IVPB Q8H-IV JOHANA; Protocol Last Admin: 01/18/19 02:07 Dose: 100 mls/hr Potassium Chloride/Dextrose/Sod Cl (D5-1/2ns+20 Meq Kcl -) 20 meq in 1,000 mls @ 125 mls/hr IV ASDIR JOHANA Last Admin: 01/17/19 18:13 Dose: 125 mls/hr Ondansetron HCl (Zofran Injection) 4 mg IVPUSH Q6H PRN PRN Reason: NAUSEA - Objective Vital Signs: Vital Signs Temperature 97.8 F 01/18/19 05:00 Pulse Rate 54 L 01/18/19 05:00 Respiratory Rate 16 01/17/19 23:00 Blood Pressure 99/52 L 01/18/19 05:00 O2 Sat by Pulse Oximetry (%) 99 01/17/19 04:30 Constitutional: Yes: No Distress, Calm Cardiovascular: Yes: S1, S2 Respiratory: Yes: Regular, CTA Bilaterally Gastrointestinal: Yes: Normal Bowel Sounds, Soft Musculoskeletal: Yes: WNL Extremities: Yes: WNL Labs: CBC, BMP 01/17/19 06:25 01/17/19 06:25 INR, PTT INR 1.09 (0.83-1.09) 01/17/19 06:25 Assessment/Plan 38 y/o male with no significant PMH presents to the ED with complaints of RLQ pain found to have acute choleycystitis confirmed on CT scan and ultrasound Problem List - Problems (1) Calculus of gallbladder with acute cholecystitis without obstruction Code(s): K80.00 - CALCULUS OF GALLBLADDER W ACUTE CHOLECYST W/O OBSTRUCTION (2) RUQ pain Code(s): R10.11 - RIGHT UPPER QUADRANT PAIN (3) Nausea and vomiting Code(s): R11.2 - NAUSEA WITH VOMITING, UNSPECIFIED Qualifiers: Vomiting type: unspecified Vomiting Intractability: non-intractable Qualified Code(s): R11.2 - Nausea with vomiting, unspecified (4) Chills Code(s): R68.83 - CHILLS (WITHOUT FEVER) plan continue current mgmt surgery note noted iv fluids npo
--- NOTE | 2019-01-18 10:52 | PN ---
Physical Exam: SUBJECTIVE: Patient seen and examined at the bedside. no abdominal pain, no nausea or vomiting. had a loose BM this morning. ambulating around room, in no acute distress. OBJECTIVE: awaiting today's labs. ekg 01/17/19: nsr, qtc 408, rate 66 started on zosyn per ID (day #2) seen by surgery, possible open cholecystectomy today per Dr. Felton. mildly hypotensive today, asymptomatic. monitor vitals. ---- Patient is a 38 year old male with no significant past medical history or medications. Presents to the [facility] ED on 01/17/19 with complaints of RLQ pain found to have acute choleycystitis per CT scan and ultrasound. He is being admitted for pain management, antibiotics and surgical evaluation. imaging: - CTAP 01/16/19: thickening edematous gallbladder with a questionable intraluminal faintly visualized stone. no CT evidence of an acute process is identified. - abdomen us 01/17/19: internal debris and suggestion of small sludge in the gallbladder. non mobile gallstone measuring 2.7cm in the gallbladder neck region w/o wall thickening and with a questionable trace of pericholecystic free fluid. Vital Signs Period Temp Pulse Resp BP Sys/Nielson Pulse Ox Last 24 Hr 97.8 F-98.9 F 54-70 16-20 99-128/52-72 GENERAL: The patient is awake, alert, and fully oriented, in no acute distress. HEAD: Normal with no signs of trauma. EYES: PERRL, extraocular movements intact, sclera anicteric, conjunctiva clear. No ptosis. ENT: Ears normal, nares patent, oropharynx clear without exudates, moist mucous membranes. NECK: Trachea midline, full range of motion, supple. ABDOMEN: Soft, nondistended, normoactive bowel sounds, had bm yesterday EXTREMITIES: no edema. NEUROLOGICAL: Normal speech, gait not observed. PSYCH: Normal mood, normal affect. SKIN: Warm, dry, normal turgor, no rashes or lesions noted Laboratory Results - last 24 hr 01/17/19 01/17/19 01/17/19 15:23 19:03 23:07 POC Glucometer 86 101 104 Phosphorus 01/18/19 01/18/19 01/18/19 03:15 06:30 06:37 POC Glucometer 94 92 Phosphorus 3.0 Active Medications Generic Name Dose Route Start Last Admin Trade Name Freq PRN Reason Stop Dose Admin Acetaminophen 1,000 mg 01/17/19 04:10 01/17/19 12:04 Ofirmev Injection - IVPB 1,000 mg Q6H PRN Administration PAIN LEVEL 4 - 6 Piperacillin Sod/Tazobactam 50 mls @ 100 mls/hr 01/17/19 11:15 01/18/19 02:07 Sod 3.375 gm/ Dextrose IVPB 100 mls/hr Q8H-IV JOHANA Administration Protocol Potassium Chloride/Dextrose/Sod Cl 20 meq in 1,000 mls @ 125 mls/hr 01/17/19 18:00 01/17/19 18:13 D5-1/2ns+20 Meq Kcl - IV 125 mls/hr ASDIR JOHANA Administration Ondansetron HCl 4 mg 01/17/19 04:08 Zofran Injection IVPUSH Q6H PRN NAUSEA ASSESSMENT/PLAN: Problem List - Problems (1) Calculus of gallbladder with acute cholecystitis without obstruction Assessment/Plan: - CTAP 01/16/19: thickening edematous gallbladder with a questionable intraluminal faintly visualized stone. no CT evidence of an acute process is identified. - abdomen us 01/17/19: internal debris and suggestion of small sludge in the gallbladder. non mobile gallstone measuring 2.7cm in the gallbladder neck region w/o wall thickening and with a questionable trace of pericholecystic free fluid. Seen by ID and started on zosyn. patient denies fever/chills/malaise. on zofran prn ekg without qtc prolongation monitor pain, tylenol for now, if worse may need stronger pain control pre surgery care: -incentive spirometer -pain management -monitor vitals, labs Code(s): K80.00 - CALCULUS OF GALLBLADDER W ACUTE CHOLECYST W/O OBSTRUCTION (2) Cholecystitis Assessment/Plan: patient presents to the [facility] ED on 01/17/19 with complaints of RLQ pain found to have acute choleycystitis per CT scan and ultrasound. He is being admitted for pain management, antibiotics and surgical evaluation. Code(s): K81.9 - CHOLECYSTITIS, UNSPECIFIED (3) Prophylactic measure Assessment/Plan: fen d5 1/2 ns 20meq @ 125./cc monitor bgms q 4 while npo monitor electrolytes advance diet per surgery lipid panel and a1c in a.m. incentive spirometer full code Code(s): Z29.9 - ENCOUNTER FOR PROPHYLACTIC MEASURES, UNSPECIFIED Visit type - Emergency Visit Emergency Visit: Yes ED Registration Date: 01/17/19 Care time: The patient presented to the Emergency Department on the above date and was hospitalized for further evaluation of their emergent condition. - New Patient This patient is new to me today: No - Critical Care Critical Care patient: No - Discharge Referral Referred to [facility] Med P.C.: No
[2019-01-18 11:40] LABS: BASO % 0.6 % (0-2.0); EOS % 2.8 % (0-4.5); HEMATOCRIT 44.6 % (35.4-49); HEMOGLOBIN 14.9 GM/dL (11.7-16.9); MCH 30.1 pg (25.7-33.7); MCHC 33.4 g/dl (32.0-35.9); MEAN CELL VOLUME 90.2 fl (80-96); MEAN PLT VOLUME 8.7 fl (7.5-11.1); MONO % 8.7 % (3.8-10.2); NEUT % 50.9 % (42.8-82.8); PLATELET COUNT 248 K/MM3 (134-434); RBC 4.95 M/mm3 (4.00-5.60); RDW 13.1 % (11.9-15.9); WHITE BLOOD COUNT 6.6 K/mm3 (4.0-10.0)
[2019-01-18 11:56] LABS: ALBUMIN 3.4 g/dl (3.4-5.0); BILIRUBIN,TOTAL 0.8 mg/dL (0.2-1); BLOOD UREA NITROGEN 11.6 mg/dL (7-18); CALCIUM 8.6 mg/dL (8.5-10.1); CREATININE 0.9 mg/dL (0.55-1.3); MAGNESIUM 2.4 mg/dL (1.8-2.4); POTASSIUM 4.2 mmol/L (3.5-5.1); TOT PROT 6.1 g/dl (6.4-8.2)
[2019-01-18] MEDS ORDERED: LIDOCAINE HCL 1%, 10 MG/ML (20ML VIAL) ONE (12:19)
[2019-01-18] MEDS ORDERED: BENZOIN TINCTURE SWABSTICK TP ONE (12:20)
[2019-01-18] MEDS ORDERED: LACTATED RINGERS SOLUTION 1,000 ML IV SCH (12:30)
[2019-01-18] MEDS ORDERED: DEXAMETHASONE SOD PHOSPHATE 4 MG/1 ML VIAL ONE ×2 (12:38→13:14)
[2019-01-18] MEDS ORDERED: LIDOCAINE HCL/PF 2% SDV 5ML VIAL ONE (12:38)
[2019-01-18] MEDS ORDERED: SODIUM CHLORIDE 0.9% P/F 10 ML VIAL IJ ONE (12:38)
[2019-01-18] MEDS ORDERED: PROPOFOL 20 ML ONE (12:39)
[2019-01-18] MEDS ORDERED: MIDAZOLAM HCL 2 MG/2 ML SINGLE DOSE VIAL ONE (12:39)
[2019-01-18] MEDS ORDERED: ROCURONIUM BROMIDE 50 MG/5 ML SYRINGE ONE (12:39)
[2019-01-18] MEDS ORDERED: KETOROLAC TROMETHAMINE 30 MG/1 ML VIAL ONE (13:14)
[2019-01-18] MEDS ORDERED: LIDOCAINE HCL 1%, 10 MG/ML (20ML VIAL) NR ONE ×2 (13:24→13:53)
[2019-01-18] MEDS ORDERED: BUPIVACAINE HCL/PF 0.5% (5 MG/ML) 30 ML VIAL IJ ONE ×3 (13:29→13:53)
[2019-01-18] MEDS ORDERED: EPHEDRINE SULFATE/0.9% NACL/PF 50 MG/10 ML SYRINGE NR ONE (13:38)
[2019-01-18] MEDS ORDERED: NEOSTIGMINE METHYLSULFATE 0.5 MG/ML - 10 ML MDV ONE (13:51)
[2019-01-18] MEDS ORDERED: GLYCOPYRROLATE 0.2 MG/1 ML VIAL ONE (13:52)
--- NOTE | 2019-01-18 14:49 | PN ---
Progress Note (short form) - Note Progress Note: Dept of Anesthesia Intubation Note Patient was taken to the OR, Standard monitors applied, smooth induction with easy bag/mask ventilation. On direct laryngoscopy, a large floppy epiglottis was noted, with a grade 3-4 view of the vocal cords. The larynx was anterior and the endotracheal tube could not be passed on direct laryngoscopy. A glidescope was used to visualize the vocal cords which confirmed an anterior larynx. The edotracheal tube could not be passed at such a steep angle so a soft bougie catheter was used. The tip of the catheter was placed at the level of the vocal cords (could not be passed distal) and an endotracheal tube was guided into the trachea. The surgery continued without incident.
--- NOTE | 2019-01-18 14:51 | OP ---
Operative Note - Note: Operative Date: 01/18/19 Pre-Operative Diagnosis: acute cholecystitis Operation: laparoscopic cholecystectomy Findings: gallbladder edematous, mobile gallstone inside, cystic duct and artery identified clearly Post-Operative Diagnosis: Same as Pre-op Surgeon: Sean Felton Cryogenic Transport Driver: Jaskaran Thacker Anesthesiologist/MOHEL: Vazquze Vasquez Anesthesia: General, Local (20ml 0.5% marcaine) Specimens Removed: gallbladder to pathology Estimated Blood Loss (mls): 10 Fluid Volume Replaced (mls): 1,100 (crystalloid) Operative Report Dictated: Yes
[2019-01-18] MEDS ORDERED: ACETAMINOPHEN 325 MG TABLET (FP) PO SCH (15:00)
[2019-01-18] MEDS ORDERED: ONDANSETRON 4 MG/2 ML VIAL IVPUSH PRN (15:02)
[2019-01-18] MEDS ORDERED: IBUPROFEN 600 MG TABLET (FP) PO SCH (18:00)
[2019-01-18] MEDS: IBUPROFEN 600 MG TABLET (FP) PO SCH (18:01)
[2019-01-18] MEDS: ACETAMINOPHEN 325 MG TABLET (FP) PO SCH (22:00)
[2019-01-19] MEDS: IBUPROFEN 600 MG TABLET (FP) PO SCH ×3 (00:20→12:05)
[2019-01-19] MEDS ORDERED: DEXTROSE 5%-WATER - 50 ML IVPB ONE ×2 (01:54→09:11)
[2019-01-19] MEDS ORDERED: PIPERACILLIN/TAZOBACTAM 3.375 GM VIAL IVPB ONE ×2 (01:54→09:11)
[2019-01-19] MEDS: PIPERACILLIN/TAZOB 3.375 GM 3.375 GM in DEXTROSE 5%-WATER - 50 ML IVPB SCH ×2 (01:58→09:35)
[2019-01-19] MEDS: LACTATED RINGERS SOLUTION 1,000 ML IV SCH ×2 (02:05→15:15)
[2019-01-19] MEDS: ACETAMINOPHEN 325 MG TABLET (FP) PO SCH ×3 (03:18→15:10)
[2019-01-19 07:57] LABS: BASO % 0.2 % (0-2.0); HEMATOCRIT 43.3 % (35.4-49); HEMOGLOBIN 14.7 GM/dL (11.7-16.9); LYMPH % 13.7 % (8-40); MCH 30.4 pg (25.7-33.7); MCHC 33.9 g/dl (32.0-35.9); MEAN CELL VOLUME 89.6 fl (80-96); MEAN PLT VOLUME 8.4 fl (7.5-11.1); MONO % 8.9 % (3.8-10.2); NEUT % 77.2 % (42.8-82.8); PLATELET COUNT 269 K/MM3 (134-434); RBC 4.83 M/mm3 (4.00-5.60); RDW 12.8 % (11.9-15.9); WHITE BLOOD COUNT 9.6 K/mm3 (4.0-10.0)
[2019-01-19 08:07] LABS: ALBUMIN 3.5 g/dl (3.4-5.0); BILIRUBIN,TOTAL 0.8 mg/dL (0.2-1); BLOOD UREA NITROGEN 7.6 mg/dL (7-18); CALCIUM 8.8 mg/dL (8.5-10.1); CREATININE 0.9 mg/dL (0.55-1.3); MAGNESIUM 2.2 mg/dL (1.8-2.4); POTASSIUM 4.5 mmol/L (3.5-5.1); TOT PROT 6.5 g/dl (6.4-8.2)
--- NOTE | 2019-01-19 08:37 | PN ---
Progress Note (short form) - Note Progress Note: Anesthesia postop note 38 y/o M s/p GA for laparoscopic cholecistectomy. Found to be a difficult intubation. POD#1, aaox3, vss, no complaints. Patient informed that he is a difficult intubation, he told me that the anesthesiologist told him that last night. Also the nurse printed the anesthesia note and will give it to the patient for future reference. No anesthesia complications.
--- NOTE | 2019-01-19 09:09 | PN ---
Progress Note, Physician History of Present Illness: 38 y/o male with no significant PMH presents to the ED with complaints of RLQ pain- patient states that he was eating steak for dinner and about an hour after dinner he started to have this sharp RLQ pain associated with 3-4 episodes of vomiting no diarrhea. he states that this is the third episode like this in the past; the last one being around 3 weeks ago; he states that he also felt warm and that he was having radha associated dizziness- he denies any CP/SOB? - Current Medication List Current Medications: Active Medications Acetaminophen (Tylenol -) 650 mg PO Q6H JOHANA Last Admin: 01/19/19 03:18 Dose: 650 mg Lactated Ringer's (Lactated Ringers Solution) 1,000 mls @ 125 mls/hr IV ASDIR JOHANA Last Admin: 01/19/19 02:05 Dose: 125 mls/hr Piperacillin Sod/Tazobactam (Sod 3.375 gm/ Dextrose) 50 mls @ 100 mls/hr IVPB Q8H-IV JOHANA; Protocol Last Admin: 01/19/19 01:58 Dose: 100 mls/hr Ibuprofen (Motrin -) 600 mg PO Q6H JOHANA Last Admin: 01/19/19 06:55 Dose: 600 mg Ondansetron HCl (Zofran Injection) 4 mg IVPUSH Q6H PRN PRN Reason: NAUSEA - Objective Vital Signs: Vital Signs Temperature 98 F 01/19/19 06:35 Pulse Rate 64 01/19/19 06:35 Respiratory Rate 20 01/19/19 06:35 Blood Pressure 92/56 L 01/19/19 06:35 O2 Sat by Pulse Oximetry (%) 99 01/18/19 16:15 Labs: CBC, BMP 01/19/19 06:15 01/19/19 06:15 INR, PTT INR 1.09 (0.83-1.09) 01/17/19 06:25 - ....Imaging Ultrasound: Report Reviewed (distended GB with 2.8cm nonmobile stone in GB neck ; normal CBD CT: distended and mildly edematous GB with isodense gallstone- no biliary tract dilation) Problem List - Problems (1) Cholecystitis Code(s): K81.9 - CHOLECYSTITIS, UNSPECIFIED (2) Prophylactic measure Code(s): Z29.9 - ENCOUNTER FOR PROPHYLACTIC MEASURES, UNSPECIFIED (3) Difficult intubation Assessment/Plan: Found to be a difficult intubation as per anesthesia Code(s): T88.4XXA - FAILED OR DIFFICULT INTUBATION, INITIAL ENCOUNTER
--- NOTE | 2019-01-19 11:54 | PN ---
Progress Note, Physician History of Present Illness: stable no new issues - Current Medication List Current Medications: Active Medications Acetaminophen (Tylenol -) 650 mg PO Q6H JOHANA Last Admin: 01/19/19 09:35 Dose: 650 mg Lactated Ringer's (Lactated Ringers Solution) 1,000 mls @ 125 mls/hr IV ASDIR JOHANA Last Admin: 01/19/19 02:05 Dose: 125 mls/hr Piperacillin Sod/Tazobactam (Sod 3.375 gm/ Dextrose) 50 mls @ 100 mls/hr IVPB Q8H-IV JOHANA; Protocol Last Admin: 01/19/19 09:35 Dose: 100 mls/hr Ibuprofen (Motrin -) 600 mg PO Q6H JOHANA Last Admin: 01/19/19 06:55 Dose: 600 mg Ondansetron HCl (Zofran Injection) 4 mg IVPUSH Q6H PRN PRN Reason: NAUSEA - Objective Vital Signs: Vital Signs Temperature 98 F 01/19/19 06:35 Pulse Rate 64 01/19/19 06:35 Respiratory Rate 20 01/19/19 06:35 Blood Pressure 92/56 L 01/19/19 06:35 O2 Sat by Pulse Oximetry (%) 99 01/18/19 16:15 Constitutional: Yes: No Distress, Calm Cardiovascular: Yes: S1, S2 Gastrointestinal: Yes: Normal Bowel Sounds, Soft Musculoskeletal: Yes: WNL Extremities: Yes: WNL Neurological: Yes: Alert, Oriented Psychiatric: Yes: Alert, Oriented Labs: CBC, BMP 01/19/19 06:15 01/19/19 06:15 INR, PTT INR 1.09 (0.83-1.09) 01/17/19 06:25 Assessment/Plan 38 y/o male with no significant PMH presents to the ED with complaints of RLQ pain found to have acute choleycystitis confirmed on CT scan and ultrasound Problem List - Problems (1) Calculus of gallbladder with acute cholecystitis without obstruction Code(s): K80.00 - CALCULUS OF GALLBLADDER W ACUTE CHOLECYST W/O OBSTRUCTION (2) RUQ pain Code(s): R10.11 - RIGHT UPPER QUADRANT PAIN (3) Nausea and vomiting Code(s): R11.2 - NAUSEA WITH VOMITING, UNSPECIFIED Qualifiers: Vomiting type: unspecified Vomiting Intractability: non-intractable Qualified Code(s): R11.2 - Nausea with vomiting, unspecified (4) Chills Code(s): R68.83 - CHILLS (WITHOUT FEVER) plan continue current mgmt if patient eating can stop abx
--- NOTE | 2019-01-19 12:24 | PN ---
Progress Note, Physician History of Present Illness: s/p lap ambar for acute cholecystitis seen and examined in bed, no family present feels better, doing ok ambulated, voided, passing gas but no BM tolerating diet pain managed well with alternating tylenol and ibuprofen some incisional pain/tenderness - Current Medication List Current Medications: Active Medications Acetaminophen (Tylenol -) 650 mg PO Q6H JOHANA Last Admin: 01/19/19 09:35 Dose: 650 mg Lactated Ringer's (Lactated Ringers Solution) 1,000 mls @ 125 mls/hr IV ASDIR JOHANA Last Admin: 01/19/19 02:05 Dose: 125 mls/hr Piperacillin Sod/Tazobactam (Sod 3.375 gm/ Dextrose) 50 mls @ 100 mls/hr IVPB Q8H-IV JOHANA; Protocol Last Admin: 01/19/19 09:35 Dose: 100 mls/hr Ibuprofen (Motrin -) 600 mg PO Q6H JOHANA Last Admin: 01/19/19 12:05 Dose: 600 mg Ondansetron HCl (Zofran Injection) 4 mg IVPUSH Q6H PRN PRN Reason: NAUSEA - Objective Vital Signs: Vital Signs Temperature 98 F 01/19/19 06:35 Pulse Rate 64 01/19/19 06:35 Respiratory Rate 20 01/19/19 06:35 Blood Pressure 92/56 L 01/19/19 06:35 O2 Sat by Pulse Oximetry (%) 98 01/19/19 09:00 Constitutional: Yes: Well Nourished, No Distress, Calm Eyes: Yes: Conjunctiva Clear, EOM Intact. No: Sclera Icterus HENT: Yes: Atraumatic, Normocephalic Gastrointestinal: Yes: Soft, Distention (mild), Tenderness (mild RUQ and incisional, umbilical mainly; appropriate for postop), Tenderness, Epigastrium ( mild) Extremities: No: Cool, Cyanosis Integumentary: Yes: Incision (x4 dressed). No: Jaundice, Rash Wound/Incision: Yes: Steri Strips (under dressings), Dressing Dry and Intact ( with small dried spots on subxiphoid and umbilical sites). No: Dressing Removed Neurological: Yes: Alert, Oriented Labs: CBC, BMP 01/19/19 06:15 01/19/19 06:15 CMP Sodium 138 mmol/L (136-145) 01/19/19 06:15 Potassium 4.5 mmol/L (3.5-5.1) 01/19/19 06:15 Chloride 103 mmol/L (98-107) 01/19/19 06:15 Carbon Dioxide 28 mmol/L (21-32) 01/19/19 06:15 Anion Gap 7 MMOL/L (8-16) L 01/19/19 06:15 BUN 7.6 mg/dL (7-18) 01/19/19 06:15 Creatinine 0.9 mg/dL (0.55-1.3) 01/19/19 06:15 Est GFR (CKD-EPI)AfAm 124.26 01/19/19 06:15 Est GFR (CKD-EPI)NonAf 107.21 01/19/19 06:15 POC Glucometer 92 UNITS (80-120) 01/18/19 06:37 Random Glucose 101 mg/dL (74-106) 01/19/19 06:15 Hemoglobin A1c % 5.5 % (4.2-6.3) 01/18/19 07:07 Calcium 8.8 mg/dL (8.5-10.1) 01/19/19 06:15 Phosphorus 3.0 mg/dL (2.5-4.9) 01/18/19 06:30 Magnesium 2.2 mg/dL (1.8-2.4) 01/19/19 06:15 Total Bilirubin 0.8 mg/dL (0.2-1) 01/19/19 06:15 AST 34 U/L (15-37) 01/19/19 06:15 ALT 92 U/L (13-61) H 01/19/19 06:15 Alkaline Phosphatase 69 U/L (45-117) 01/19/19 06:15 Total Protein 6.5 g/dl (6.4-8.2) 01/19/19 06:15 Albumin 3.5 g/dl (3.4-5.0) 01/19/19 06:15 Triglycerides 74 mg/dL (0-150) 01/18/19 06:30 Cholesterol 191 mg/dL (50-200) 01/18/19 06:30 Total LDL Cholesterol 126 mg/dL (5-100) H 01/18/19 06:30 HDL Cholesterol 45 mg/dL (40-60) 01/18/19 06:30 Lipase 172 U/L (73-393) 01/16/19 23:35 Problem List - Problems (1) Calculus of gallbladder with acute cholecystitis without obstruction Assessment/Plan: POD1 s/p laparoscopic cholecystectomy pain meds - alternating nonnarcotics po, doing well ambulating, voiding, tolerating diet incisional pain/tenderness appropriate dressings intact d/c home with lifting restrictions f/u in 2 weeks instructions in d/c plan pt understands and agrees with plan needs referral to PMD/clinic Code(s): K80.00 - CALCULUS OF GALLBLADDER W ACUTE CHOLECYST W/O OBSTRUCTION (2) RUQ pain Code(s): R10.11 - RIGHT UPPER QUADRANT PAIN
--- NOTE | 2019-01-19 12:39 | DS ---
Physical Exam: SUBJECTIVE: Patient seen and examined OBJECTIVE: Vital Signs Period Temp Pulse Resp BP Sys/Nielson Pulse Ox Last 24 Hr 98 F-99.0 F 60-89 16-20 92-143/50-74 97-100 PHYSICAL EXAM GENERAL: The patient is awake, alert, and fully oriented, in no acute distress. HEAD: Normal with no signs of trauma. EYES: PERRL, extraocular movements intact, sclera anicteric, conjunctiva clear. No ptosis. ENT: Ears normal, nares patent, oropharynx clear without exudates, moist mucous membranes. NECK: Trachea midline, full range of motion, supple. ABDOMEN: Soft, nondistended, normoactive bowel sounds, had bm yesterday EXTREMITIES: no edema. NEUROLOGICAL: Normal speech, gait not observed. PSYCH: Normal mood, normal affect. SKIN: Warm, dry, normal turgor, no rashes or lesions noted LABS Laboratory Results - last 24 hr 01/18/19 01/19/19 01/19/19 07:07 06:15 06:15 WBC 9.6 RBC 4.83 Hgb 14.7 Hct 43.3 MCV 89.6 MCH 30.4 MCHC 33.9 RDW 12.8 Plt Count 269 MPV 8.4 Absolute Neuts (auto) 7.4 Neutrophils % 77.2 D Lymphocytes % 13.7 D Monocytes % 8.9 Eosinophils % 0.0 D Basophils % 0.2 Nucleated RBC % 0 Sodium 138 Potassium 4.5 Chloride 103 Carbon Dioxide 28 Anion Gap 7 L BUN 7.6 Creatinine 0.9 Est GFR (CKD-EPI)AfAm 124.26 Est GFR (CKD-EPI)NonAf 107.21 Random Glucose 101 Hemoglobin A1c % 5.5 Calcium 8.8 Magnesium 2.2 Total Bilirubin 0.8 AST 34 ALT 92 H Alkaline Phosphatase 69 Total Protein 6.5 Albumin 3.5 HOSPITAL COURSE: Date of Admission:01/17/19 Date of Discharge: 01/19/19 38 y/o male with no significant PMH presents to the ED with complaints of RLQ pain- - CTAP 01/16/19: thickening edematous gallbladder with a questionable intraluminal faintly visualized stone. no CT evidence of an acute process is identified. - abdomen us 01/17/19: internal debris and suggestion of small sludge in the gallbladder. non mobile gallstone measuring 2.7cm in the gallbladder neck region w/o wall thickening and with a questionable trace of pericholecystic free fluid. POD #1 s/p lap ambar for acute cholecystitis ambulated, voided, passing gas but no BM tolerating diet pain managed well with alternating tylenol and ibuprofen some incisional pain/tenderness Of note patient was a difficult intubation as per anesthesia. Explained to patient and copy of anesthesia report given to him and instructed to notify caitlin care providers if surgery is needed in future Cleared by surgery for discharged home. No new prescription on discharge. Minutes to complete discharge: 35 Discharge Summary Reason For Visit: CHOLECYSTITIS Current Active Problems Calculus of gallbladder with acute cholecystitis without obstruction (Acute) Chills (Acute) Cholecystitis (Acute) Difficult intubation (Acute) Nausea and vomiting (Acute) Prophylactic measure (Acute) RUQ pain (Acute) Hospital Course: 38 y/o male with no significant PMH presents to the ED with complaints of RLQ pain- - CTAP 01/16/19: thickening edematous gallbladder with a questionable intraluminal faintly visualized stone. no CT evidence of an acute process is identified. - abdomen us 01/17/19: internal debris and suggestion of small sludge in the gallbladder. non mobile gallstone measuring 2.7cm in the gallbladder neck region w/o wall thickening and with a questionable trace of pericholecystic free fluid. POD #1 s/p lap ambar for acute cholecystitis ambulated, voided, passing gas but no BM tolerating diet pain managed well with alternating tylenol and ibuprofen some incisional pain/tenderness Cleared by surgery for diacharged home. No new prescription on discharge. Condition: Good - Instructions Diet, Activity, Other Instructions: Postoperative instructions: You had a laparoscopic cholecystectomy on 01/18/[address] Sean Felton of [facility]. Activity: Resume your usual activities gradually, but no heavy exertion or lifting more than 10-15 pounds for 1 month. Remove dressings 48 hours after surgery; sticky tapes underneath will fall off by themselves. You may shower daily once the dressings come off (leave sticky tapes alone), just pat the incision areas dry. No bath or swimming until skin incisions have fully healed. Eat lightly at first, but advance to your usual diet as tolerated. Pain: For pain, you may use and alternate Tylenol (acetaminophen) 1-2 pills and/ or ibuprofen 200 mg (1-3 pills) every 6 hours each as needed; this means that you can take one OR the other at 3-hour intervals. Do not take more than 4000mg of acetaminophen in a day. Take medications as prescribed or indicated on the labeling. Follow-up: Call Dr. Felton's office at [phone] to make your postop appointment (Friday in approximately 2 weeks after surgery). Clinic is held in the [facility] on the first floor of [facility]. Call the office if you have: * increasing pain not responsive to pain medication * fever of 101F or higher * vomiting * unusual or increasing bleeding or drainage from wounds * increasing redness or swelling at wound sites Also, see your primary medical doctor within 1-2 weeks. Call for an appointment to establish care with a primary medical doctor within 1 -2 weeks: [facility] clinic/[facility] Care [address] [phone] Bring your discharge paperwork with you. Referrals: [facility] [Provider Group] Sean Felton MD [Staff Physician] - - Home Medications Comprehensive Discharge Medication List: Ambulatory Orders Acetaminophen [Tylenol .Regular Strength -] 650 mg PO Q6H tablet 01/19/19 Ibuprofen [Motrin -] 600 mg PO Q6H tablet 01/19/19 Problem List - Problems (1) Cholecystitis Code(s): K81.9 - CHOLECYSTITIS, UNSPECIFIED (2) Difficult intubation Code(s): T88.4XXA - FAILED OR DIFFICULT INTUBATION, INITIAL ENCOUNTER This patient is new to me today: Yes Date on this admission: 01/19/19 Emergency Visit: Yes ED Registration Date: 01/17/19 Care time: The patient presented to the Emergency Department on the above date and was hospitalized for further evaluation of their emergent condition. Critical Care patient: No - Discharge Referral Referred to [facility] No
[2019-01-19] MEDS ORDERED: PT OWN MED DRAWER 7, Y5N ONE (14:08)
[2019-01-19 15:09] VITALS: BP 116/63; PULSE 70; TEMP 98.1
--- NOTE | 2019-01-20 17:39 | PATH ---
Surgical Pathology Report Patient Name: MOIRA AGUILAR Med. Rec. #: [id number] /Age/Gender: 1980 (Age: 38) / M Account: [id number] Location: [facility] MED/SURG Taken: 01/18/2019 Received: 01/19/2019 Reported: 01/20/2019 Physicians: Sean Felton M.D. Specimen(s) Received GALLBLADDER Clinical History Acute cholecystitis Final Diagnosis GALLBLADDER, CHOLECYSTECTOMY: ACUTE SUPERIMPOSED ON CHRONIC CHOLECYSTITIS. CHOLELITHIASIS. Electronically Signed Khushbu Foote M.D. Gross Description Received in formalin, labeled "gallbladder," is a 7.5 x 2.3 x 2.3 cm. gallbladder with a 0.2 cm. in length portion of cystic duct attached. The outer surface varies from smooth to shaggy. The lumen contains with bile and one stone, which measures 2.5 cm greatest dimension. The mucosa is focally superficial eroded. The wall of the gallbladder measures 0.3cm. in thickness. Gang Rider sections are submitted in one cassette.
--- NOTE | 2019-01-25 19:36 | OP ---
DATE OF OPERATION: 01/18/2019 PREOPERATIVE DIAGNOSIS: Acute cholecystitis. POSTOPERATIVE DIAGNOSIS: Acute cholecystitis. PROCEDURE: Laparoscopic cholecystectomy. SURGEON: Sean Felton MD STEEL FITTER: Jaskaran Thacker MD ANESTHESIA: General endotracheal and local, 20 mL of 0.5% Marcaine. ESTIMATED BLOOD LOSS: 10 mL. FLUIDS: 1100 mL of crystalloid. SPECIMEN: Gallbladder to Pathology. FINDINGS: Gallbladder was edematous. There was a mobile gallstone inside. The cystic duct and artery were clearly identified. DISPOSITION: Stable and extubated to PACU. INDICATIONS FOR PROCEDURE: The patient is a 38-year-old [facility] male, who is generally healthy, presenting with his third episode of right upper quadrant pain in the last year and a half, with the most recent episode happening only several weeks prior, for which he did not previously seek medical attention. The current pain occurred after a meal of tacos, associated with nausea and vomiting, as well as some dizziness and chills when the pain came, but no fever. In the ER, he was afebrile, with a white count of 10.9. Ultrasound and CT were done, showing a large gallstone in the neck of the gallbladder, with possible trace pericholecystic fluid, and no ductal dilation or wall thickening. He was started on IV fluids and antibiotics and admitted to Medicine. He also had mildly elevated LFTs with a normal bilirubin and lipase. With bowel rest and fluids and pain medicine, his pain had improved somewhat. He had no suggestion by labs or exam of choledocholithiasis. Risks, benefits, and alternatives of laparoscopic, possible open, cholecystectomy were discussed with the patient, including but not limited to bleeding, infection, injury to adjacent structures , bile leak or ductal injury, intraabdominal abscess, incisional hernia, bowel obstruction in the future, need for further procedures, and alternatives, inclusive of antibiotics, with delayed or no surgery, and those risks of recurrence of cholecystitis, cholangitis, sepsis, pancreatitis, and their sequelae. The patient desired to proceed with an operation, signed informed consent for the same, and is now brought to OR for the procedure today, after morning labs remained stable. OPERATIVE TECHNIQUE: The patient was brought to the operating room and laid supine on the operating table. Sequential compression devices were applied to bilateral lower extremities, and his preoperative antibiotics continued in the perioperative period. After induction and intubation by Anesthesia, the patient's abdomen was clipped of hair, prepped and draped in sterile fashion. A small supraumbilical midline incision was made with a scalpel and carried into subcutaneous tissues with electrocautery, until the abdominal wall fascia was identified, scored, and elevated with Tay clamps. The peritoneum was entered bluntly with the tip of a clamp , and a fingertip inserted to ensure entry into the abdominal cavity and the absence of any underlying adhesions. A stay suture of 0 Vicryl was then placed in figure-of- eight fashion in the fascia for later closure, and the Harrison trocar introduced directly into the abdominal cavity and secured in place with the balloon. The abdomen was insufflated with carbon dioxide. The patient was placed in reverse Trendelenburg position, and the laparoscope inserted to inspect the abdominal cavity. Three additional 5-mm ports were placed under direct vision, 1 in the sub-xiphoid area , and 2 more in the right upper quadrant. Graspers were used to grasp the fundus of the gallbladder and retract it over the liver edge superiorly, and the infundibulum of the gallbladder, which was retracted laterally. There was a mobile gallstone palpable inside the gallbladder. A [place] dissector was then used to begin dissecting at the base of the gallbladder to identify the cystic structures. The cystic duct was first identified and clearly isolated, leading directly into the base of the gallbladder. The cystic artery just medial was then also identified very clearly. These were the only 2 structures clearly identified as entering into or onto the gallbladder itself. The cystic duct was first clipped , 2 proximally and 1 distally, with Endo Clips, and divided between them. The cystic artery was also clipped 2 proximally, 1 distally, and divided with endoscissors between the clips, and the hook cautery was then used to take the gallbladder off of the liver bed. Once this had been entirely accomplished, the gallbladder was placed in an EndoCatch bag and retrieved from the umbilical port site, with the camera in the subxiphoid port. This was passed off for a pathology specimen, and the gallstone was palpable inside it. Once the Harrison trocar and pneumoperitoneum had been reestablished, the operative field was reinspected for hemostasis, which was complete. The suction architectural drafter was used to suction fluid from the operative site, at which point all ports were removed under direct vision, the Harrison trocar and camera also removed, and the abdomen exsufflated of carbon dioxide. The patient was returned to neutral position, and the stay suture at the umbilicus was tied to close the fascia there. Hemostasis in the port sites was achieved with electrocautery where needed. Local anesthetic was then infiltrated into all the port sites. Skin was closed with 4-0 Vicryl subcuticular sutures, including a running at the umbilicus. Benzoin and Steri-Strips were applied over each incision, and dressings of gauze and Tegaderm placed over these. Counts were correct at the end of the procedure. The patient was then awakened and extubated by Anesthesia, moved back to a stretcher and taken to the recovery room in stable condition, having tolerated the procedure well. Dr. Thacker was an essential faculty research assistant throughout the procedure, including helping with entry into the abdominal cavity, retraction and manipulation of the gallbladder throughout the case, and assisting with gallbladder retrieval, as well as local infiltration and closing the port sites at the end of the case. Artis Kulkarni/[id number] MTDD
== END 2019-01-19 16:05 | disposition home or self-care (01) | DRG 263 ==
LOC: JER 22:49 → JERBED 01-17 03:52 → J8W 01-17 05:33
PROVIDERS: ADMIT Internal Medicine; ATTEND Nurse Practitioner Acute Care
PROC: 0FT44ZZ Resection of Gallbladder, Percutaneous Endoscopic Approach (ICD-10-PCS; principal; 2019-01-18 12:30)
DX: K80.12 Calculus of gallbladder with acute and chronic cholecystitis without obstruction (principal); R11.2 Nausea with vomiting, unspecified; R10.31 Right lower quadrant pain; D72.829 Elevated white blood cell count, unspecified
CPT/HCPCS: 36415; 74177-TC; 76705-TC; 80053; 80061; 82962; 83036; 83690; 83721; 83735; 84100; 85025; 85610; 85730; 86850; 86900; 86901; 88304-TC; 93005; 93010; 94760; 99283-25; J0131; J7030; Q9967